=== PATIENT | female | born 1960 | race Caucasian/White ===

== ENCOUNTER → 2024-03-04 14:57 | Outpatient (REF) | payer MEDICARE, BC, SELFPAY | LOC: HWRCS 14:57 | PROVIDERS: ATTENDING PHYSICIAN Internal Medicine Cardiovascular Disease; FAMILY PHYSICIAN Nurse Practitioner Family | DX: I35.1 Nonrheumatic aortic (valve) insufficiency (principal); I10 Essential (primary) hypertension | CPT/HCPCS: 93306 ==